=== PATIENT | male | born 1965 | race Caucasian/White ===

== ENCOUNTER → 2018-01-09 | Outpatient (CLI) | payer MEDICARE, MEDICAID ==
[~2018-01-09] MED LIST: ALBUTEROL0.09 MG/A2 INH; ATIVAN1 MG PO; AUGMENTIN 875 M1 TA1 PO; CIPRO500 MG PO; COLACE100 MG PO; CYMBALTA60 MG PO; DAYPRO600 M1 PO; DOXEPIN10 MG PO; FLEXERIL10 MG PO; HYDROCODONE BIT1 T11 PO; LAMOTRIGINE200 MG PO; LEVOTHYROXIN0.075 M1 PO; MULTIVITAMIN1 TA1 PO; OXYCONTIN20 MG PO; PERCOCET 325 MG1 TA2 PO; PERCOCET 325 MG1 TA6 PO; SENOKOT NATURA8.6 MG PO; TRAMADOL HCL50 MG PO; VALIUM5 MG PO; VIBRAMYCIN100 MG PO; VICODIN 5/500 505 MG PO
[2018-01-09 10:52] LABS: BASO % 0.2 % (0.0-1.0); EOS % 0.1 % (1.0-4.0); HEMATOCRIT 44.4 % (42.0-52.0); HEMOGLOBIN 15.2 g/dl (14.0-18.0); LYMPH # 2.2 10*3/uL (1.3-4.4); LYMPH % 16.8 % (27.0-41.0); MEAN CELL VOLUME 92.9 fl (80.0-94.0); MEAN CORPUSCULAR HGB 31.8 pg (27.0-31.0); MEAN CORPUSCULAR HGB CONC 34.2 g/dl (33.0-37.0); MEAN PLATELET VOLUME 9.3 fl (9.6-12.3); MONO # 0.7 10*3/uL (0.1-1.0); MONO % 5.5 % (3.0-9.0); NEUT # 10.2 10*3/uL (2.3-7.9); PLATELET COUNT AUTOMATED 395 10*3/uL (130-400); RED BLOOD COUNT 4.78 10*6/uL (4.50-5.90); RED CELL DISTRI WIDTH 13.1 % (0-14.5); WHITE BLOOD COUNT 13.2 10*3/uL (4.8-10.8)
[2018-01-09 11:23] LABS: BUN 17 mg/dl (7-24); CHLORIDE 104 mmol/L (98-107); CHOLESTEROL 195 mg/dL (<200); CREATININE 0.88 mg/dL (0.70-1.30); POTASSIUM 3.7 mmol/L (3.5-5.1); SGOT/AST 22 IU/L (3-35); SGPT/ALT 56 U/L (12-78); SODIUM 139 mmol/L (136-145); TOTAL PROTEIN 8.1 gm/dL (6.4-8.2); TRIGLYCERIDES 107 mg/dl (<150); VLDL CHOLESTEROL 21 mg/dL (6-40)
[2018-01-09 11:32] LABS: ALKALINE PHOSPHATASE 77 U/L (45-117); HDL CHOLESTEROL 58 mg/dl (40-60); LDL CHOLESTEROL 116 mg/dL (9-159)
[2018-01-09 11:46] LABS: FREE T4 0.67 ng/dl (0.76-1.46)
== END | disposition home or self-care (01) ==
LOC: LAB 03:27
PROVIDERS: Internal Medicine
DX: E78.2 Mixed hyperlipidemia (principal); E55.9 Vitamin D deficiency, unspecified; E03.9 Hypothyroidism, unspecified; E66.09 Other obesity due to excess calories; Z79.899 Other long term (current) drug therapy

== ENCOUNTER 2019-03-01 23:45 | Emergency (ER) | payer MEDICARE, MEDICAID ==
[~2019-03-01] VITALS: Ht 170.1 cm; Wt 82.6 kg
[~2019-03-01 23:45] MED LIST changes: -LEVOTHYROXIN0.075 M1 PO; +Synthroid,Levo50 MCG PO; +VALIUM10 MG PO
[2019-03-02 00:32] LABS: BILIRUBIN NEGATIVE (NEGATIVE); BLOOD 3+ (NEGATIVE); CLARITY SL CLOUDY (CLEAR); COLOR YELLOW (YELLOW); GLUCOSE NEGATIVE (NEGATIVE); KETONE TRACE (NEGATIVE); LEUKO ESTERASE NEGATIVE (NEGATIVE); NITRITE NEGATIVE (NEGATIVE); SPECIFIC GRAVITY 1.025 (1.005-1.030); UROBILINOGEN 0.2 E.U./dl (0.2-1.0)
[2019-03-02 00:32] LABS: BASO % 0.4 % (0.0-1.0); EOS # 0.1 10*3/uL (0.0-0.4); EOS % 1.6 % (1.0-4.0); HEMATOCRIT 40.9 % (42.0-52.0); HEMOGLOBIN 14.1 g/dl (14.0-18.0); LYMPH # 2.5 10*3/uL (1.3-4.4); MEAN CELL VOLUME 93.6 fl (80.0-94.0); MEAN CORPUSCULAR HGB 32.3 pg (27.0-31.0); MEAN CORPUSCULAR HGB CONC 34.5 g/dl (33.0-37.0); MONO # 0.6 10*3/uL (0.1-1.0); MONO % 7.8 % (3.0-9.0); NEUT # 4.8 10*3/uL (2.3-7.9); PLATELET COUNT AUTOMATED 306 10*3/uL (130-400); RED BLOOD COUNT 4.37 10*6/uL (4.50-5.90); RED CELL DISTRI WIDTH 13.2 % (0-14.5); WHITE BLOOD COUNT 8.1 10*3/uL (4.8-10.8)
[2019-03-02 00:45] LABS: RBC TNTC rbc/hpf (0-2)
[2019-03-02 00:47] LABS: ALBUMIN 3.8 gm/dl (3.1-4.5); ALKALINE PHOSPHATASE 73 U/L (45-117); BUN 13 mg/dl (7-24); CHLORIDE 107 mmol/L (98-107); CREATININE 0.97 mg/dL (0.70-1.30); LIPASE 227 U/L (73-393); POTASSIUM 3.8 mmol/L (3.5-5.1); SGOT/AST 35 IU/L (3-35); SGPT/ALT 49 U/L (12-78); SODIUM 139 mmol/L (136-145); TOTAL PROTEIN 7.5 gm/dL (6.4-8.2)
== END 2019-03-02 03:39 | disposition home or self-care (01) ==
LOC: ED 23:45
PROVIDERS: Student in an Organized Health Care Education/Training Program
DX: K59.00 Constipation, unspecified (principal); R19.7 Diarrhea, unspecified; R11.10 Vomiting, unspecified; F17.200 Nicotine dependence, unspecified, uncomplicated; Z88.2 Allergy status to sulfonamides; Z88.1 Allergy status to other antibiotic agents; Z88.6 Allergy status to analgesic agent; Z88.5 Allergy status to narcotic agent; Z88.8 Allergy status to other drugs, medicaments and biological substances; Z79.899 Other long term (current) drug therapy

== ENCOUNTER → 2019-07-13 | Outpatient (CLI) | payer MEDICARE, MEDICAID ==
--- NOTE | ~2019-07-13 | PF ---
[place], [place] PULMONARY FUNCTION TEST NAME: DON DUMONT UNIT #: [id number] ROOM: DOCTOR: YOUSIF ABEL MD,NOLA BIRTHDATE: [birth year] DOS: ORDERED BY: Dr. Saige Espinoza. HISTORY: The patient is a 54-year-old male, height of 66 inches, weight of 180 pounds. The patient has been noted with tobacco use 1 pack of cigarettes per day actively symptoms reported with shortness of breath as well as frequent wheezing. SPIROMETRY: The FVC is 2.86 liters or 67% predicted value, FEV1 of 2.43 liters as a 72% predicted value. The ratio of FEV1/FVC recorded 85%. Post-bronchodilator, no improvement noted in FEV1/FVC. Flow volume loop was noted mild obstructive airway pattern. FINAL IMPRESSION: Mild obstructive lung disease. The patient's current pulmonary function test was suspected. Clinical correlation would be advised. NOLA DODD MD CM:PFREPORT:PULMONARY FUNCTION TEST [id number] NOLA ABEL MD
== END | disposition home or self-care (01) ==
LOC: CP 10:40
DX: R06.02 Shortness of breath (principal)

== ENCOUNTER 2020-06-24 21:24 | Emergency (ER) | payer MEDICARE, MEDICAID ==
[~2020-06-24] VITALS: Ht 170.1 cm; Wt 81.6 kg
[2020-06-25] MEDS ORDERED: GLYCERIN1 EACH R (00:22)
== END 2020-06-25 00:25 | disposition home or self-care (01) ==
LOC: ED 21:24
DX: K59.00 Constipation, unspecified (principal); Z88.8 Allergy status to other drugs, medicaments and biological substances; Z88.2 Allergy status to sulfonamides; Z79.899 Other long term (current) drug therapy

== ENCOUNTER → 2020-08-22 | Outpatient (CLI) | payer MEDICARE, MEDICAID ==
[~2020-08-22] MED LIST changes: +GLYCERIN1 EACH R
== END | disposition home or self-care (01) ==
LOC: COVID19 14:50
PROVIDERS: ATTEND Internal Medicine
DX: Z20.828 Contact with and (suspected) exposure to other viral communicable diseases (principal)

== ENCOUNTER 2020-12-29 23:09 | Emergency (ER) | payer MEDICARE, MEDICAID | END 2020-12-29 23:43 | disposition home or self-care (01) | LOC: ED 23:09 | DX: M27.3 Alveolitis of jaws (principal); Z88.2 Allergy status to sulfonamides; Z88.8 Allergy status to other drugs, medicaments and biological substances; Z79.899 Other long term (current) drug therapy; Z98.890 Other specified postprocedural states ==